=== PATIENT | male | born 1975 | race African-American/Black ===

== ENCOUNTER 2021-09-02 20:49 | Emergency (ER) | payer OTHER, SELFPAY ==
[~2021-09-02] VITALS: Ht 172.7 cm; Wt 77.0 kg
[~2021-09-02 20:49] MED LIST: TNFMISC
[2021-09-02 22:27] VITALS: BP 160/88
[2021-09-02] MEDS ORDERED: MIDAZOLAM HCL 5 MG/ML VIAL IM ONE (22:30)
== END 2021-09-03 | disposition home or self-care (01) ==
LOC: EMS 20:51
DX: F79 Unspecified intellectual disabilities (principal); F17.210 Nicotine dependence, cigarettes, uncomplicated
CPT/HCPCS: 99285; Z7502